=== PATIENT | male | born 1965 | race African-American/Black ===

== ENCOUNTER 2018-07-24 12:08 | Emergency (ER) | payer SELFPAY ==
[~2018-07-24] VITALS: Ht 188 cm; Wt 99.8 kg
[2018-07-24 12:24] VITALS: BP 154/99
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
[2018-07-24] MEDS ORDERED: Ketorolac 30mg Inj IM ONE (12:45)
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
[2018-07-24] MEDS ORDERED: ROBAXIN-750750 MG PO (13:32)
[2018-07-24] MEDS ORDERED: LIDODERM700 M1 TOPIC (13:32)
[2018-07-24] MEDS ORDERED: NAPROXEN500 M1 ORAL (13:32)
[2018-07-24 13:56] VITALS: BP 154/99
--- NOTE | 2018-07-24 13:59 | NUR ---
ER DISCHARGE NOTE:pt. was provided with cane Patient is cleared to be discharged per ERMD, pt is aox4, on room air, with stable vital signs. pt was given dc and prescription instructions, pt was able to verbalize understanding. pt is able to ambulate with steady gait. pt took all belongings.
--- NOTE | 2018-07-24 15:01 | Diagnostic Imaging Report ---
Indication: Knee pain Technique: 3 views of the left knee Comparison: None Findings: No suprapatellar effusion. There is a superior pole patellar osteophyte. No acute fractures. No dislocations. Joint spaces are preserved. Impression: Minimal degenerative changes. No acute bony trauma
== END 2018-07-24 14:00 | disposition home or self-care (01) ==
LOC: EMR 13:20
DX: S80.02XA Contusion of left knee, initial encounter (principal); S16.1XXA Strain of muscle, fascia and tendon at neck level, initial encounter; S39.012A Strain of muscle, fascia and tendon of lower back, initial encounter; V43.52XA Car driver injured in collision with other type car in traffic accident, initial encounter; Y92.410 Unspecified street and highway as the place of occurrence of the external cause
CPT/HCPCS: 73562; 96372; 99283; J1885